=== PATIENT | male | born 1945 | race Caucasian/White ===

== ENCOUNTER 2021-01-18 12:05 | Emergency (ER) | payer MEDICARE, OTHER ==
[~2021-01-18] VITALS: Ht 172.7 cm; Wt 53.0 kg
[2021-01-18] MEDS ORDERED: MECLIZINE CHEWABLE 25 MG TAB PO ONE (12:30)
[2021-01-18] MEDS ORDERED: MECLIZINE CHEWABLE 25 MG TAB ONE (12:58)
--- NOTE | 2021-01-18 13:00 | NUR ---
[facility] after his fiance said he felt hot and the COVID screener took his temp and said it was upwards of 103* F. Pt took no meds, temp was 97.7 on arrival. Pt also complains of dizziness, hx of vertigo, able to ambulate. Pt also complains of itchiness, "every time I go to a homeless long term it's like I get bugs." No bugs noted in hair or on clothes. No scratch herrera noted on back or limbs. Pt has red herrera in groin area, Law assessed.
[2021-01-18 13:21] VITALS: BP 118/63
--- NOTE | 2021-01-18 13:45 | NUR ---
pt able to ambulate steadily in hallway to bathroom. pt given sprite
== END 2021-01-18 14:28 | disposition home or self-care (01) ==
LOC: ED 13:07
DX: R42 Dizziness and giddiness (principal); B35.6 Tinea cruris; Z87.891 Personal history of nicotine dependence
CPT/HCPCS: 99283

== ENCOUNTER 2021-02-19 15:53 | Emergency (ER) | payer OTHER ==
[~2021-02-19] VITALS: Ht 172.7 cm; Wt 47.9 kg
--- NOTE | 2021-02-19 16:17 | NUR ---
ASSUMED CARE OF PATIENT. PATIENT REPORTS CONGESTION AND A COUGH. VS STABLE. NO ACUTE DISTRESS NOTED. CALL LIGHT IN PLACE. WILL CONTINUE TO MONITOR.
--- NOTE | 2021-02-19 16:56 | NUR ---
PT SEEN BY DR FERRARA
--- NOTE | 2021-02-19 17:04 | NUR ---
xray in room
--- NOTE | 2021-02-19 17:07 | NUR ---
digital media specialist in room doing ekg
--- NOTE | 2021-02-19 17:36 | NUR ---
pt reports he can't have IV contrast, Dr Hector aware.
[2021-02-19 17:53] LABS: ALBUMIN 3.2 g/dL (3.4-5.0); ANION GAP 9 mmol/L (5-15); CALCIUM 8.5 mg/dL (8.5-10.1); CHLORIDE 106 mmol/L (98-107)
[2021-02-19 17:57] LABS: BASOPHILS % (AUTO) 1 % (0-1); EOSINOPHILS % (AUTO) 1 % (1-7); LYMPHOCYTES % (AUTO) 23 % (22-44); MEAN CORPUSCULAR HEMOGLOBIN 28.7 pg (27.5-34.5); MEAN PLATELET VOLUME 6.7 fL (7.4-10.4); MONOCYTES % (AUTO) 14 % (2-9); NEUTROPHILS % (AUTO) 61 % (42-75); PLATELET COUNT 283 x10^3/uL (130-400); RED BLOOD COUNT 4.29 x10^6/uL (4.38-5.82); RED CELL DISTRIBUTION WIDTH 13.1 % (9.4-14.8)
[2021-02-19 17:58] LABS: ALANINE AMINOTRANSFERASE 17 U/L (12-78); ALKALINE PHOSPHATASE 94 U/L (45-117); BILIRUBIN,TOTAL 0.5 mg/dL (0.2-1.0); CREATININE 1.25 mg/dL (0.7-1.3); TOTAL PROTEIN 7.1 g/dL (6.4-8.2)
--- NOTE | 2021-02-19 18:01 | NUR ---
Report given to EDDI Wilkinson for break.
--- NOTE | 2021-02-19 19:44 | NUR ---
pt resting in room. vs stable. no acute distress noted. will continue to monitor.
[2021-02-19 20:56] VITALS: BP 138/87
== END 2021-02-19 20:58 | disposition home or self-care (01) ==
LOC: ED 16:48
DX: J43.9 Emphysema, unspecified (principal); R06.02 Shortness of breath; Z72.9 Problem related to lifestyle, unspecified; R94.31 Abnormal electrocardiogram [ECG] [EKG]; F17.200 Nicotine dependence, unspecified, uncomplicated
CPT/HCPCS: 36415; 71045; 71250; 80053; 85025; 93005; 99285